=== PATIENT | male | born 2000 | race Caucasian/White ===

== ENCOUNTER 2025-07-10 12:15 | Emergency (ER) | payer OTHER ==
[~2025-07-10] VITALS: Ht 180.3 cm; Wt 75.0 kg
[2025-07-10 12:28] VITALS: BP 126/72; PULSE 107; RESP 18; TEMP 97.8; O2SAT 97
[2025-07-10 13:55] LABS: PLATELET COUNT (AUTO) 243 K/uL (150-450); RED BLOOD CELL COUNT(AUTO) 4.79 MIL/uL (4.50-5.90); RED CELL DISTRIBUTION WIDTH 14.0 % (11.5-14.5); WHITE BLOOD COUNT (AUTO) 10.3 K/uL (4.5-11.0)
[2025-07-10 14:06] LABS: CALCIUM, TOTAL 8.9 mg/dL (8.8-10.5); CREATININE 1.00 mg/dL (0.60-1.30); GLOMERULAR FILTR. RATE CALC > 60 mL/min (>60); GLUCOSE,RANDOM 111 mg/dL (70-110); SODIUM SERUM 137 mmol/L (136-145); UREA NITROGEN, BLOOD 11 mg/dL (7-18)
[2025-07-10 14:09] LABS: ASPARTATE AMINOTRANSFERASE 30.0 U/L (15-37); TOTAL PROTEIN, SERUM 8.0 g/dL (6.4-8.2)
[2025-07-10 14:32] LABS: APPEARANCE,URINE CLEAR (CLEAR); GLUCOSE, URINE (UA) NEGATIVE (NEGATIVE); LEUKOCYTE ESTERASE ,URINE NEGATIVE (NEGATIVE); NITRATE,URINE NEGATIVE (NEGATIVE); OCCULT BLOOD,URINE NEGATIVE (NEGATIVE); SPECIFIC GRAVITIY, URINE 1.006 (1.003-1.030)
[2025-07-10] MEDS: ONDANSETRON 4 MG RAPDIS TABLET PO ONE (15:29)
== END 2025-07-10 16:47 | disposition left against medical advice (07) ==
LOC: EMS 12:25
DX: K50.90 Crohn's disease, unspecified, without complications (principal); Z98.890 Other specified postprocedural states; Z53.29 Procedure and treatment not carried out because of patient's decision for other reasons
CPT/HCPCS: 80048; 80076; 81003; 83690; 85025; 99283